=== PATIENT | female | born 1990 | race Caucasian/White ===

== ENCOUNTER 2018-02-12 12:12 | Emergency (ER) | payer MEDICAID, SELFPAY ==
[2018-02-12 12:14] VITALS: BP 176/119; PULSE 72; RESP 16; TEMP 36.9; O2SAT 99; BMI 49.1
--- NOTE | 2018-02-12 12:26 | ED.VISSUMM ---
- ER Visit Summary Date of Service: 02/12/18 Chief Complaint: Nausea, vomiting History of Present Illness: The patient is a 27 F presenting with nausea, vomiting. States this has been ongoing for the past week. Today she has had one episode of vomiting. Denies blood in her emesis today. Denies blood in her stool or black stool. She states last week she did have emesis with streaks of blood. This has since resolved. She has mild diffuse abdominal cramping. Denies fever. Denies other complaints. Physical Examination: Vitals are stable. Patient is afebrile. Alert no acute distress. HEENT exam is unremarkable. Neck is supple. Lungs are clear and equal bilaterally. Heart is regular rate and rhythm. Abdomen is soft nontender nondistended. No rebound or guarding Extremities are unremarkable. Skin is warm and dry. No focal neurologic deficit. Remainder of exam is unremarkable. Emergency Department Course and Treatment: Patient is given IV fluids, Zofran. CBC, chemistries unremarkable. Liver lipase are normal. HCG is negative. Patient is resting comfortably in the emergency department. She is able to tolerate small amounts of p.o. in the emergency department. She is given a prescription for Zofran and Pepcid. Advised to follow-up with her primary care physician. Advised return to ED if worsening complaints. Disposition: Discharged home Impression: Nausea vomiting This note was generated with [employer] dictation software. It may contain incorrect words, spelling, and punctuation that were not noted in review of the chart prior to signing ED Disposition - Plan for ED Patient: Chief Complaint: Nausea/Vomiting Referrals: Anatoly Mckeon [Primary Care Provider] -
[2018-02-12 12:45] VITALS: BP 146/102; PULSE 53; RESP 16; O2SAT 99
[2018-02-12] MEDS: 0.9% Normal Saline 1,000 ML 1000 ML IV (12:46)
[2018-02-12] MEDS: Ondansetron 4 MG/2 ML Vial IV (12:50)
[2018-02-12 12:56] LABS: Absolute Lymphocyte Count 2.13 X10^3/ul (0.83-4.51); Absolute Neutrophil Count 5.1 X10^3/uL (2.0-7.7); Basophil# 0.04 X10^3/uL; Basophil% 0.5 % (0-1); Eosinophil# 0.08 X10^3/uL; Lymphocyte # 2.13 X10^3/ul (4.0); Lymphocyte % 27.1 % (19-41); Mean Corp Hgb Conc 32.6 g/gl (32-36); Mean Corpuscular Hgb 28.6 pg (27.0-32.0); Mean Corpuscular Volume 87.9 fL (81-99); Mean Platelet Vol. 9.9 fl (6.2-12.0); Monocyte# 0.53 X10^3/uL; Monocyte% 6.7 % (0-10); Neutrophil # 5.08 X10^3/uL (2.7-7.7); Neutrophil % 64.6 % (47-70); Platelet Count 355 K/mm3 (150-450); RBC Distribution Width CV 14.3 % (11.6-14.6); RBC Distribution Width SD 46.1 fl (35.1-43.9); Red Blood Count 4.89 M/mm3 (4.2-5.4); White Blood Count 7.9 K/mm3 (4.4-11.0)
[2018-02-12 12:57] LABS: POSITIVE COUNT NO; POSITIVE DIFFERENTIAL NO; POSITIVE MORPHOLOGY NO
[2018-02-12 13:00] LABS: ALB/GLOB Ratio 1.3 RATIO (0.9-2.4); AST(SGOT) 14 U/L (15-37); Alanine Aminotransfer ALT/SGPT 23 U/L (13-56); Albumin, Serum 4.1 g/dL (3.2-5.0); Alkaline Phosphatase 110 U/L (45-117); Anion Gap 5 (5-15); BUN 11 mg/dL (7-18); BUN/Creat Ratio 17.2 RATIO (10-20); Calcium,Total 9.1 mg/dL (8.5-10.1); Chloride 110 mmol/L (98-107); Creatinine, Serum 0.64 mg/dL (0.55-1.02); EST Glomerular Filtration Rate 119 mL/min (>60); Est Glom Filt Rate - Afr Amer 144 mL/min (>60); Estimated Creatinine Clearance 144.05 ml/min; Globulin 3.2 g/dL (2.2-4.2); Glucose 75 mg/dL (74-106); Lipase 80 U/L (73-393); Potassium 3.5 mmol/L (3.5-5.1); Protein, Total 7.3 g/dL (6.4-8.2); Sodium Level 141 mmol/L (136-145)
[2018-02-12 13:08] LABS: Pregnancy, Serum, hCG Quali. NEGATIVE Negative (0-9 Nonpreg)
--- NOTE | 2018-02-12 13:35 | ED.DEP ---
ED Disposition - Plan for ED Patient: Chief Complaint: Nausea/Vomiting Instructions: ED Nausea Vomiting Prescriptions: Ondansetron [Zofran Odt] 4 mg PO Q8H PRN PRN #10 tablet PRN Reason: Nausea Famotidine [Pepcid] 20 mg PO BID #28 tablet Referrals: Anatoly Mckeon [Primary Care Provider] -
== END 2018-02-12 13:49 | disposition home or self-care (01) ==
LOC: ED 12:42
PROVIDERS: Emergency Provider Emergency Medicine; Family Provider Family Medicine; PCP Family Medicine
DX: R11.2 Nausea with vomiting, unspecified (principal); R10.9 Unspecified abdominal pain; Z72.0 Tobacco use; Z79.899 Other long term (current) drug therapy
CPT/HCPCS: 80053; 83690; 84703; 85025; 96361; 96374; 99283; J7030; J2405

== ENCOUNTER 2018-04-22 10:28 | Emergency (ER) | payer MEDICAID, SELFPAY ==
[2018-04-22 10:29] VITALS: BP 166/105; PULSE 81; RESP 18; TEMP 36.8; O2SAT 97; BMI 46.8
--- NOTE | 2018-04-22 10:42 | ED.VISSUMM ---
- ER Visit Summary Date of Service: 04/22/18 Chief Complaint: Pain from the left trapezius region and the entire left upper extremity including all digits History of Present Illness: The patient is a 28 F who has a history of hypertension presents with pain of the entire left upper extremity. Movement exacerbates her pain. She denies paresthesia, anesthesia or loss of motor function. She has taken Tylenol for the pain. She is applied icy hot as well with no effect. She denies headache. She denies any visual, ocular auditory symptoms. She denies chest pain, palpitations or rapid heartbeat. She denies shortness of breath, dyspnea on exertion or difficulty breathing. She does not report radicular pain. Pain is circumferential. She has no other complaints. Physical Examination: Blood pressure is elevated 166/105. She appears uncomfortable. HEENT exam is unremarkable. There is pain palpation over the left trapezius and there is tension/firmness of the left trapezius muscle. Biceps, brachial radialis and triceps reflex are 1-2+ symmetric. Axillary, median, radial and ulnar function intact. Any movement at the joints causes her discomfort. Radial pulses 2+ and symmetric. Heart is regular without murmur, gallop or rub. S1 and S2 are normal. Lungs are clear to auscultation with good movement of air bilaterally. There is pain palpation over the left trapezius, deltoid region and movement of the major joints cause her discomfort. Test Results: Patient has muscle skeletal pain. Light of her numerous allergies which include acetaminophen which she has taken at home without reaction limits treatment options. We will administer Naprosyn his apartment discharged with prescription Naprosyn. She was instructed to contact her insurance carrier since she has no doctor in the area to determine who is on her panel. She also was informed to apply ice 2030 minutes at a time 6-8 times a day. Emergency Department Course and Treatment: Anti-inflammatories since there is no contraindication. Since patient blood pressure is elevated without symptoms no treatment or workup is indicated. Treatment Plan: Anti-inflammatory, ice, rest and contact insurance carrier for local primary care physician. Disposition: Discharged to home Impression: Trapezius muscle spasm and atraumatic left upper extremity pain initial encounter This note was generated with [employer] dictation software. It may contain incorrect words, spelling, and punctuation that were not noted in review of the chart prior to signing ED Disposition - Plan for ED Patient: Disposition: Home or Assisted Living Chief Complaint: Numb/Ting Instructions: ED Spasm Muscle, ED Acute Pain [facility] Prescriptions: Naproxen [Naprosyn] 500 mg PO BID #14 tab Referrals: Care Physician,No Primary [Primary Care Provider] - Additional Instructions: Contact your insurance carrier and ask for a list of physicians in the area that is on your insurance panel
[2018-04-22 10:52] VITALS: BP 136/92
[2018-04-22] MEDS: Naproxen 250 MG Tablet 500 MG PO (10:56)
== END 2018-04-22 11:00 | disposition home or self-care (01) ==
PROVIDERS: Emergency Provider Emergency Medicine
DX: M62.830 Muscle spasm of back (principal); M79.602 Pain in left arm; I10 Essential (primary) hypertension; E66.9 Obesity, unspecified; Z79.899 Other long term (current) drug therapy
CPT/HCPCS: 99283

== ENCOUNTER 2023-09-12 11:31 | Emergency (ER) | payer SELFPAY ==
[2023-09-12 11:31] VITALS: BP 151/100; PULSE 72; RESP 16; TEMP 36.9; O2SAT 97; BMI 35.7
--- NOTE | 2023-09-12 13:05 | RAD_ITS ---
STUDY: X-RAY CHEST REASON FOR EXAM: Female, 33 years old. cough TECHNIQUE: Single AP portable view of the chest. COMPARISON: None. FINDINGS: The lungs are clear and expanded. There is no demonstrated pleural abnormality. Normal size heart. Normal mediastinum and tennille. Normal visualized pulmonary arteries. Normal visualized aortic arch and descending thoracic aorta. Normal visualized thoracic spine. Normal visualized ribs, clavicles, and shoulders. There is no demonstrated abnormality of the visualized soft tissue structures of the upper abdomen. RAD/Chest 1 View (Portable) IMPRESSION: Normal x-ray examination of the chest. Electronically Signed: Preston Egan MD at 13:48 EST ,
[2023-09-12] MEDS: Mag Hydrox/Al Hydrox/Simeth 30 ML UDC PO (13:17)
[2023-09-12] MEDS: Ondansetron 4 MG/2 ML Vial IV (13:18)
[2023-09-12] MEDS: 0.9% Normal Saline (1000mL) 1,000 ML 1000 ML IV (13:19)
[2023-09-12 13:27] LABS: Absolute Lymphocyte Count 2.13 X10^3/uL (0.83-4.51); Absolute Neutrophil Count 8.8 X10^3/uL (2.0-7.7); Basophil# 0.06 X10^3/uL; Basophil% 0.5 % (0-1); Eosinophil# 0.12 X10^3/uL; Hematocrit 44.3 % (37-47); Hemoglobin 14.7 g/dL (12.0-15.0); Lymphocyte # 2.13 X10^3/ul (0.83-4.51); Lymphocyte % 17.6 % (19-41); Mean Corp Hgb Conc 33.2 g/dL (32-36); Mean Corpuscular Volume 90.4 fL (81-99); Mean Platelet Vol. 9.9 fl (6.2-12.0); Monocyte# 0.88 X10^3/uL; Monocyte% 7.3 % (0-10); NRBC Flagged by Analyzer 0 % (0-5); Neutrophil # 8.82 X10^3/uL (2.7-7.7); Neutrophil % 73.1 % (47-70); Platelet Count 395 K/mm3 (150-450); RBC Distribution Width SD 42.7 fl (35.1-43.9); White Blood Count 12.1 K/mm3 (4.4-11.0)
[2023-09-12 13:37] VITALS: BP 154/110; PULSE 61; RESP 18; O2SAT 100
--- NOTE | 2023-09-12 13:41 | NURSING ---
GREEN AND YELLOW NEED REDRAWN
[2023-09-12 14:11] LABS: Internal QC Validated? YES +Cl - CLEAR BKGD
[2023-09-12 14:12] LABS: Pregnancy, Serum, hCG Quali. NEGATIVE Negative
[2023-09-12 14:17] LABS: Anion Gap 5 (5-15); BUN 8 mg/dL (7-18); BUN/Creat Ratio 17.2 RATIO (10-20); Calcium,Total 8.7 mg/dL (8.5-10.1); Chloride 111 mmol/L (98-107); Creatinine, Serum 0.47 mg/dL (0.55-1.02); EST Glomerular Filtration Rate 164 mL/min (>60); Est Glom Filt Rate - Afr Amer 199 mL/min (>60); Estimated Creatinine Clearance 179.59 ml/min; Glucose 95 mg/dL (74-106); Potassium 3.5 mmol/L (3.5-5.1); Sodium Level 141 mmol/L (136-145)
--- NOTE | 2023-09-12 14:22 | EX.ED.DYSGE1 ---
HPI History of Present Illness Chief Complaint: General Illness Narrative Narrative: 33-year-old female presenting with abdominal pain which she describes in her epigastrium as well as nausea for the last week. Started off with fever, chills, body aches. She has decreased p.o. intake because of her epigastric pain. She notes she does not feel she is getting better. Denies any significant medical history. PFSH PFS Medical History Pain management Home Medications lisinopril 20 mg tablet 20 mg BID 02/12/18 [History Last Taken Unknown] naproxen 500 mg tablet 500 mg PO BID #14 tabs 04/22/18 [Rx Last Taken Unknown] ondansetron 4 mg disintegrating tablet 4 mg PO Q8H PRN PRN Nausea #14 tabs 09/12/23 [Rx Last Taken Unknown] sucralfate 100 mg/mL oral suspension (Carafate) 10 ml PO BID #200 mL 09/12/23 [Rx Last Taken Unknown] Allergy/AdvReac Type Severity Reaction Status Date / Time hydrocodone [From Vicodin] Allergy Itching Verified 09/12/23 12:04 sulfamethoxazole Allergy Other Verified 09/12/23 12:04 [From Bactrim] trimethoprim [From Bactrim] Allergy Other Verified 09/12/23 12:04 Surgical History Hx of cholecystectomy Social History Smoking Status: Current every day smoker tobacco type: cigarettes ROS ROS ED Constitutional Constitutional ED: Reports chills and fever(s); Denies sweats Eyes Eyes: Denies blurry vision or change in vision ENT ENT ED: Denies ear pain or sore throat Cardiovascular Cardiovascular: Denies chest pain, palpitations or racing heartbeat Respiratory/Chest Respiratory/Chest: Denies cough, dyspnea or sputum Gastrointestinal Gastrointestinal: Reports nausea; Denies constipation, diarrhea or vomiting Genitourinary Genitourinary ED: Denies dysuria, hematuria or urinary frequency Musculoskeletal Musculoskeletal: Denies arthralgias, myalgias or neck pain Integumentary Denies abscess, Abrasions or rash Neurologic Neurologic: Denies headache(s), paresthesias or weakness Psychiatric Psychiatric: Denies anxiety, depression, suicidal ideation or suicidal thoughts Endocrine Endocrinology: Denies polydipsia or polyuria EXAM Physical Exam Const Vital Signs: 09/12/23 11:31 09/12/23 12:05 09/12/23 13:37 Temperature 98.5 F Temperature Source Temporal Pulse Rate 72 61 Respiratory Rate 16 18 Respiratory Effort Short of Breath Respiratory Pattern Normal Blood Pressure 151/100 H 154/110 H Blood Pressure Mean 117 124 Pulse Ox 97 100 Oxygen Delivery Method Room Air Room Air Positive well nourished General Appearance ED: NAD; Negative for pallor HEENT Reports moist mucous membranes Eyes PERRL and EOMs intact bilaterally Neck no lymphadenopathy and supple Chest Wall inspection of chest normal Resp normal respiratory effort and clear to auscultation bilaterally Auscultation: Negative for rales, rhonchi or wheezes Cardio regular rate and regular rhythm GI normal to inspection, nondistended, normoactive bowel sounds Extremity normal to inspection General Extremety ED: Negative for edema or tenderness General Extremity: Negative for edema Neuro oriented x3 and CN's II-XII intact bilaterally Sensorium / Orientation: alert Psych mental status grossly normal Skin no rashes or lesions noted and no wounds General Skin Exam: Negative for jaundice or pallor MDM MDM MDM Narrative Medical decision making narrative: Patient presenting with abdominal pain, nausea, vomiting. He is given Zofran and a GI cocktail and this did significantly help her pain and nausea. CBC was obtained and shows mild leukocytosis 12.1. Hemoglobin stable. Platelets are normal. Renal function and electrolytes within normal limits. Serum negative. Chest x-ray my interpretation shows no acute process. I opted not to do a viral testing as its been a week and it would not change our plan. Since he is feeling better with Zofran and a GI cocktail send her home with Carafate and Zofran. She amenable to this plan. She is discharged stable condition. Impression: 1. Nausea 2. Viral syndrome 3. Abdominal pain Lab Data Labs: Laboratory Results - last 24 hr 09/12/23 09/12/23 13:16 13:50 WBC 12.1 H RBC 4.90 Hgb 14.7 Hct 44.3 MCV 90.4 MCH 30.0 MCHC 33.2 RDW Std Deviation 42.7 RDW Coeff of Deena 13.0 Plt Count 395 MPV 9.9 Immature Gran % (Auto) 0.500 Neut % (Auto) 73.1 H Lymph % (Auto) 17.6 L [place] % (Auto) 7.3 Eos % (Auto) 1.0 Baso % (Auto) 0.5 Absolute Neuts (auto) 8.8 H Absolute Lymphs (auto) 2.13 Nucleated RBC % 0 Sodium Cancelled 141 Potassium Cancelled 3.5 Chloride Cancelled 111 H Carbon Dioxide Cancelled 25.0 Anion Gap Cancelled 5 BUN Cancelled 8 Creatinine Cancelled 0.47 L Estim Creat Clear Calc Cancelled 179.59 Est GFR (MDRD) Af Amer Cancelled 199 Est GFR (MDRD) Non-Af Cancelled 164 BUN/Creatinine Ratio Cancelled 17.2 Glucose Cancelled 95 Calcium Cancelled 8.7 Serum , Qual Cancelled NEGATIVE Radiography Diagnostic Testing: Clinical Impression(s) from Imaging Studies Chest X-Ray 09/12/23 13:05 IMPRESSION: Normal x-ray examination of the chest. Electronically Signed: Preston Egan MD at 13:48 EST Reading Location ID and State: [facility] / [place] , Service support , Discharge Plan Triage Chief Complaint: General Illness ED Provider: Corona Auguste Dx/Rx/DC Orders Prescriptions: New ondansetron 4 mg tablet,disintegrating 4 mg PO Q8H PRN PRN (Reason: Nausea) Qty: 14 0RF sucralfate [Carafate] 100 mg/mL suspension 10 ml PO BID Qty: 200 0RF No Action lisinopril 20 tablet 20 mg BID Patient Comments: naproxen 500 MG tablet 500 mg PO BID Qty: 14 0RF Primary Care Provider: Isela Arango NP Referrals: Isela Arango NP, [facility] [Primary Care Provider] - Disposition Disposition: Home, Self Care
[2023-09-12 15:00] VITALS: BP 161/93
--- NOTE | 2023-09-12 15:25 | ED.RN ---
THIS RN ENTERED PT ROOM AT 1500 TO DISCHARGE PT. PT IV ON BED. PT GONE.
== END 2023-09-12 15:00 | disposition home or self-care (01) ==
PROVIDERS: Emergency Provider Student in an Organized Health Care Education/Training Program; PCP Nurse Practitioner Family; Visit Provider Student in an Organized Health Care Education/Training Program
DX: R11.2 Nausea with vomiting, unspecified (principal); B34.9 Viral infection, unspecified; R10.13 Epigastric pain; F17.210 Nicotine dependence, cigarettes, uncomplicated; Z79.899 Other long term (current) drug therapy
CPT/HCPCS: 71045; 80048; 84703; 85025; 96360; 96361; 99282; J7030; A4216; J2405